=== PATIENT | male | born 1955 | race Caucasian/White ===

== ENCOUNTER 2018-07-27 12:39 | Day surgery (SDC) | payer OTHER ==
[2018-07-27] MEDS ORDERED: PROPOFOL 10 MG/ML VIAL IV ONE (12:40)
[2018-07-27] MEDS ORDERED: LIDOCAINE 2% MDV (20MG/ML) 20ML VIAL IV ONE (12:40)
--- NOTE | 2018-07-28 10:30 | Operative Note ---
DATE OF SURGERY: 07/27/2018 OPERATION: COLONOSCOPY to the cecum with cold snare polypectomy x3. INDICATION: Colorectal cancer screening. The patient's last examination was 10 years ago. ANESTHESIA: Intravenous sedation was administered by the department of anesthesiology and included Diprivan titrated to effect. PROCEDURE: Following informed consent from this alert individual including a discussion of the risks and benefits of the procedure and an opportunity for the patient to ask questions, the patient was in the left lateral decubitus position. A digital rectal examination was performed. No abnormalities were noted. Following this, the Olympus [id number] video colonoscope was inserted into the rectum without resistance. The rectal mucosa had a normal appearance with normal folds and distensibility. The colonoscope was advanced up through the bowel to the level of the cecum without much difficulty. Throughout the bowel the mucosa appeared normal, the folds were normal, and the bowel was fairly well distensible. There were scattered diverticula noted in the sigmoid colon. The cecum was defined by noting the appendiceal orifice and ileocecal valve. The colon preparation was good. Retroflexion in the cecum was unremarkable. From the base of the cecum, the colonoscope was then withdrawn. No changes were noted until the sigmoid colon was reached. In the sigmoid region, there were scattered diverticula as mentioned above. Also noted were 3 sessile-appearing 4-5 mm polyps each removed with application of a cold snare polypectomy. Retroflexion in the rectum revealed internal hemorrhoids which were moderate in size. The endoscope was straightened and removed. The patient tolerated the procedure well and was returned to the recovery area in stable condition. IMPRESSION: 1. Three sigmoid colon polyps measuring 5 mm in size removed with cold snare polypectomy. 2. Sigmoid diverticulosis. 3. Moderately sized internal hemorrhoids. RECOMMENDATIONS: The patient was advised he should receive a copy of his pathology report at home in the next 2-3 weeks. If not, he was asked to call my office to review the results of testing today. Further recommendations will be forthcoming pending those results. Followup will also be with Dr. Perry. As always, thank you for allowing me to participate in the care of your patient. CC: Cameron ARMSTRONG
== END 2018-07-27 15:20 | disposition home or self-care (01) ==
LOC: HOP 12:39
PROVIDERS: ATTEND Internal Medicine Gastroenterology
DX: Z12.11 Encounter for screening for malignant neoplasm of colon (principal); K63.5 Polyp of colon; K57.30 Diverticulosis of large intestine without perforation or abscess without bleeding; E78.00 Pure hypercholesterolemia, unspecified